=== PATIENT | male | born 1975 | race Caucasian/White ===

== ENCOUNTER 2018-02-06 08:02 | Day surgery (SDC) | payer OTHER ==
[~2018-02-06] VITALS: Ht 177.8 cm; Wt 69.6 kg
[~2018-02-06 08:02] MED LIST: ALBU8.5H8 PO; AMOX1TAB61 PO; FLUT1BLS INH; FLUT1DIS5 PO; FOLI1TAB47 PO; LISI-167 PO; LISI40TA PO; PARO10TA3 PO; PRED5TAB PO; TIOT4MIS5 INH; TURM500C4 PO
[2018-02-06 08:29] VITALS: BP 145/92
[2018-02-06] MEDS ORDERED: ALBUTEROL SULFATE 2.5 MG/3 ML ONE ×2 (08:58→13:49)
[2018-02-06] MEDS ORDERED: SODIUM CHLORIDE 0.9% 1,000 ML IV SCH (09:00)
[2018-02-06] MEDS ORDERED: FENTANYL PF 100 MCG/2ML ONE (09:10)
[2018-02-06] MEDS ORDERED: MIDAZOLAM 1 MG/ML, 5ML ONE (09:10)
[2018-02-06] MEDS ORDERED: GLYCOPYRROLATE 0.4 MG/2 ML, 2ML ONE (09:11)
[2018-02-06] MEDS ORDERED: DIPHENHYDRAMINE 50 MG/ML, 1ML ONE (09:11)
[2018-02-06] MEDS ORDERED: LIDOCAINE 4% TOPICAL SOLUTION 50 ML ONE (16:01)
[2018-02-06] MEDS ORDERED: LIDOCAINE GEL 2%, 5ML ONE (16:01)
== END 2018-02-06 14:40 | disposition home or self-care (01) ==
LOC: OUT 08:02 → EDSTATUS 10:00 → OUT 14:40
PROVIDERS: ATTEND Internal Medicine
DX: J45.50 Severe persistent asthma, uncomplicated (principal); G47.33 Obstructive sleep apnea (adult) (pediatric); I10 Essential (primary) hypertension; J44.9 Chronic obstructive pulmonary disease, unspecified
CPT/HCPCS: 31660; 94640; 99152; 99153; C1886; J1200; J2250; J3010

== ENCOUNTER 2018-03-06 07:56 | Day surgery (SDC) | payer OTHER ==
[~2018-03-06] VITALS: Ht 175.3 cm; Wt 70.4 kg
[~2018-03-06 07:56] MED LIST changes: +ALBUTEROL SULFATE 2.5 MG/3 ML ONE
[2018-03-06] MEDS ORDERED: LIDOCAINE 2%, 20ML ONE (08:00)
[2018-03-06] MEDS ORDERED: LIDOCAINE 4% TOPICAL SOLUTION 50 ML ONE (08:00)
[2018-03-06] MEDS ORDERED: LIDOCAINE GEL 2%, 5ML ONE (08:00)
[2018-03-06] MEDS ORDERED: LIDOCAINE 1%, 50ML ONE (08:00)
[2018-03-06] MEDS ORDERED: SODIUM CHLORIDE 0.9% 1,000 ML IV SCH (08:26)
[2018-03-06 08:45] VITALS: BP 124/90
[2018-03-06] MEDS ORDERED: FENTANYL PF 100 MCG/2ML ONE ×3 (08:49→11:07)
[2018-03-06] MEDS ORDERED: DIPHENHYDRAMINE 50 MG/ML, 1ML ONE (08:50)
[2018-03-06] MEDS ORDERED: GLYCOPYRROLATE 0.4 MG/2 ML, 2ML ONE (08:50)
[2018-03-06] MEDS ORDERED: MIDAZOLAM 1 MG/ML, 5ML ONE ×2 (08:50→11:07)
[2018-03-06] MEDS ORDERED: PLEASE ENTER HEIGHT AND WEIGHT MC SCH (09:00)
[2018-03-06] MEDS ORDERED: ALBUTEROL SULFATE 2.5 MG/3 ML ONE (14:06)
== END 2018-03-06 14:50 | disposition home or self-care (01) ==
LOC: OUT 07:56
PROVIDERS: ATTEND Internal Medicine
DX: J45.50 Severe persistent asthma, uncomplicated (principal); F32.9 Major depressive disorder, single episode, unspecified; I10 Essential (primary) hypertension
CPT/HCPCS: 31660; 94640; 99152; 99153; C1886; J1200; J2250; J3010; J3490

== ENCOUNTER 2018-03-27 09:03 | Day surgery (SDC) | payer OTHER ==
[~2018-03-27] VITALS: Ht 175.3 cm; Wt 70.2 kg
[~2018-03-27 09:03] MED LIST changes: -ALBUTEROL SULFATE 2.5 MG/3 ML ONE
[2018-03-27] MEDS ORDERED: SODIUM CHLORIDE 0.9% 1,000 ML IV SCH (09:33)
[2018-03-27 10:07] VITALS: BP 117/83
[2018-03-27] MEDS ORDERED: DIPHENHYDRAMINE 50 MG/ML, 1ML ONE (11:02)
[2018-03-27] MEDS ORDERED: GLYCOPYRROLATE 0.4 MG/2 ML, 2ML ONE (11:03)
[2018-03-27] MEDS ORDERED: FENTANYL PF 100 MCG/2ML ONE (11:10)
[2018-03-27] MEDS ORDERED: MIDAZOLAM 1 MG/ML, 5ML ONE (11:10)
[2018-03-27] MEDS ORDERED: ALBUTEROL SULFATE 2.5 MG/3 ML ONE (13:51)
[2018-03-27] MEDS ORDERED: LIDOCAINE 4% TOPICAL SOLUTION 50 ML ONE (16:03)
[2018-03-27] MEDS ORDERED: LIDOCAINE 2%, 20ML ONE (16:03)
== END 2018-03-27 16:40 | disposition home or self-care (01) ==
LOC: OUT 09:03
PROVIDERS: ATTEND Internal Medicine
DX: J45.50 Severe persistent asthma, uncomplicated (principal); F32.9 Major depressive disorder, single episode, unspecified; I10 Essential (primary) hypertension
CPT/HCPCS: 31661; 94640; 99152; 99153; C1886; J1200; J2250; J3010; J3490; J7030

== ENCOUNTER 2018-04-18 20:13 | Inpatient (IN) | payer OTHER ==
[~2018-04-18] VITALS: Ht 175.3 cm; Wt 73.6 kg
[2018-04-18] MEDS ORDERED: ALBUTEROL/IPRATROPIUM 2.5MG/0.5MG, 3 ML ONE (20:33)
[2018-04-18] MEDS ORDERED: ALBUTEROL SULFATE 2.5MG/0.5ML ONE (20:40)
--- NOTE | 2018-04-18 20:44 | NUR ---
PT WITH RESP DISTRESS, ABLE TO SPEAK SHORT SENTANCES, NOTES HX ASTHMA, HAD FEVERS APPROX 1 WEEK AGO, NO ABX OR STEROIDS HAD JUST BEEN ON 3 WEEKS PRIOR. USED NEB JUST PRIOR TO COMING WITHOU RELIEF.
[2018-04-18] MEDS ORDERED: [UNRECOGNIZED DRUG - OTHER] (20:47)
[2018-04-18] MEDS ORDERED: methylPREDNISolone SOD SUCC 125 MG/2 ML ONE (20:48)
[2018-04-18] MEDS ORDERED: methylPREDNISolone SOD SUCC 125 MG/2 ML IVPush ONE (21:00)
[2018-04-18 21:05] LABS: MEAN CORPUSCULAR HEMOGLOBIN 30.3 pg (27.5-34.5); MEAN CORPUSCULAR HGB CONC 32.9 g/dL (33.2-36.2); MEAN CORPUSCULAR VOLUME 92.1 fL (81-97); MEAN PLATELET VOLUME 7.9 fL (7.4-10.4); PLATELET COUNT 422 x10^3/uL (130-400); RED BLOOD COUNT 4.02 x10^6/uL (4.38-5.82); RED CELL DISTRIBUTION WIDTH 13.3 % (9.4-14.8)
--- NOTE | 2018-04-18 21:12 | NUR ---
PT RESTING CALMLY ON GURNEY, DENIES PAIN, RT T/X IN PROCESS, IV SITE STARTED, MEDICATED PER JUN. SIDERAILS UP X2, CALL LIGHT WITHIN REACH.
[2018-04-18 21:16] LABS: INTERNATIONAL NORMALIZED RATIO 1.02 (0.93-1.1); PROTHROMBIN TIME 10.8 Seconds (9.6-11.5)
[2018-04-18 21:16] LABS: RAPID INFLUENZA A Negative (Negative); RAPID INFLUENZA B Negative (Negative)
[2018-04-18 21:18] LABS: ALANINE AMINOTRANSFERASE 29 U/L (12-78); ALBUMIN 3.1 g/dL (3.4-5.0); ANION GAP 3 mmol/L (5-15); CHLORIDE 101 mmol/L (98-107); CREATININE 0.54 mg/dL (0.7-1.3)
[2018-04-18 21:21] LABS: ALKALINE PHOSPHATASE 97 U/L (45-117); BILIRUBIN,TOTAL 0.3 mg/dL (0.2-1.0); TOTAL PROTEIN 7.8 g/dL (6.4-8.2)
[2018-04-18] MEDS ORDERED: CEFTRIAXONE PMX 1GM/50ML 50 ML ONE (21:21)
--- NOTE | 2018-04-18 21:27 | NUR ---
PT WORK OF BREATHING MUCH IMPROVED AT THIS TIME, ABLE TO RELAX AND SPEAKING FULL SENTANCES. FLUIDS INFUSING AND ABX HUNG, BLOOD CULTURES HAVE BEEN DRAWN TIMES TIME PRIOR TO ADMINISTRATION
[2018-04-18 21:30] LABS: BASOPHILS # (AUTO) 0.01 x10^3/uL (0-0.1); BASOPHILS % (AUTO) 0 % (0-1); EOSINOPHILS # (AUTO) 0.21 x10^3/uL (0-0.4); EOSINOPHILS % (AUTO) 1 % (1-7); LYMPHOCYTES % (AUTO) 12 % (22-44); MD SCAN; MONOCYTES # (AUTO) 1.83 x10^3/uL (0.2-0.8); MONOCYTES % (AUTO) 12 % (2-9); NEUTROPHILS # (AUTO) 11.75 x10^3/uL (1.8-6.8); NEUTROPHILS % (AUTO) 75 % (42-75)
[2018-04-18] MEDS ORDERED: CEFTRIAXONE PMX 1GM/50ML 50 ML IV ONE (21:30)
[2018-04-18] MEDS ORDERED: SODIUM CHLORIDE 0.9% 1,000ML IVBOLUS ONE (21:30)
[2018-04-18] MEDS ORDERED: AZITHROMYCIN 500 MG in SODIUM CHLORIDE 0.9% 250 ML IV ONE (21:30)
--- NOTE | 2018-04-18 21:44 | NUR ---
RT PLACING ON OPTIFLOW AT THIS TIME AND ABG'S DRAWN. PT REQUESTING SOMETHING TO HELP HIM RELAX.
[2018-04-18] MEDS ORDERED: LORazepam 2 MG/ML, 1ML ONE (21:53)
[2018-04-18] MEDS ORDERED: LORazepam 2 MG/ML, 1ML IVPush ONE (22:00)
--- NOTE | 2018-04-18 22:52 | NUR ---
PT RESTING ON GURNEY,OPTIFLOW IN USE, [id number]%, MONITORS IN PLACE, CALL LIGHT WITHIN REACH. AWAITING ROOM FOR TRANSFER.
[2018-04-18] MEDS: methylPREDNISolone SOD SUCC 125 MG/2 ML IVPush SCH (22:54)
--- NOTE | 2018-04-18 22:56 | NUR ---
REPORT TO KATHERINE ROMO [facility].
[2018-04-18] MEDS ORDERED: ACETAMINOPHEN 500 MG TABLET PO PRN (23:00)
[2018-04-18] MEDS ORDERED: ACETAMINOPHEN 650 MG SUPP PR PRN (23:00)
[2018-04-18] MEDS ORDERED: CEFTRIAXONE 2 GM in SODIUM CHLORIDE 0.9% 50 ML IVPB SCH (23:00)
[2018-04-18] MEDS ORDERED: AZITHROMYCIN 500 MG in SODIUM CHLORIDE 0.9% 250 ML IVPB SCH (23:00)
[2018-04-18] MEDS ORDERED: ONDANSETRON 2MG/ML, 2ML IVPB PRN (23:00)
[2018-04-18] MEDS ORDERED: PHARMACY MAY ADJ FOR RENAL FX MC PRN (23:00)
[2018-04-18] MEDS ORDERED: ALBUTEROL SULFATE 2.5 MG/3 ML NPPB PRN (23:30)
[2018-04-18] MEDS: BUDESONIDE 0.5 MG/2 ML INHA NPPB SCH (23:30)
[2018-04-18 23:44] VITALS: BP 147/84
[2018-04-19] MEDS ORDERED: ALBUTEROL/IPRATROPIUM 2.5MG/0.5MG, 3 ML NPPB PRN
[2018-04-19] MEDS: ENOXAPARIN 40 MG/0.4 ML SQ SCH ×2 (00:22→23:17)
[2018-04-19] MEDS ORDERED: PHARMACOKINETIC MONITORING MC PRN (01:30)
[2018-04-19] MEDS ORDERED: VANCOMYCIN PER PHARMACY MC PRN (01:30)
[2018-04-19] MEDS ORDERED: PHARMACOKINETIC CONSULTATION MC ONE (01:30)
[2018-04-19] MEDS ORDERED: LACTATED RINGERS 1,000 ML IV SCH (01:30)
[2018-04-19] MEDS: PIPERACILLIN/TAZO/PMX 3.375GM 50 ML IV SCH ×4 (01:51→19:47)
[2018-04-19] MEDS: VANCOMYCIN 1,300 MG in SODIUM CHLORIDE 0.9% 250 ML IV SCH ×2 (02:22→14:28)
[2018-04-19] MEDS: ALBUTEROL/IPRATROPIUM 2.5MG/0.5MG, 3 ML NPPB SCH ×7 (02:40→23:20)
[2018-04-19 04:00] VITALS: BP 120/73
[2018-04-19 04:36] LABS: BASOPHILS % (AUTO) 0 % (0-1); EOSINOPHILS # (AUTO) 0.01 x10^3/uL (0-0.4); EOSINOPHILS % (AUTO) 0 % (1-7); LYMPHOCYTES # (AUTO) 0.57 x10^3/uL (1-3.4); LYMPHOCYTES % (AUTO) 5 % (22-44); MD NO; MEAN CORPUSCULAR HEMOGLOBIN 30.7 pg (27.5-34.5); MEAN CORPUSCULAR HGB CONC 33.5 g/dL (33.2-36.2); MEAN CORPUSCULAR VOLUME 91.7 fL (81-97); MEAN PLATELET VOLUME 7.8 fL (7.4-10.4); MONOCYTES # (AUTO) 0.11 x10^3/uL (0.2-0.8); MONOCYTES % (AUTO) 1 % (2-9); NEUTROPHILS # (AUTO) 10.37 x10^3/uL (1.8-6.8); NEUTROPHILS % (AUTO) 94 % (42-75); PLATELET COUNT 312 x10^3/uL (130-400); RED BLOOD COUNT 3.56 x10^6/uL (4.38-5.82); RED CELL DISTRIBUTION WIDTH 12.9 % (9.4-14.8)
[2018-04-19 04:46] LABS: ALBUMIN 2.6 g/dL (3.4-5.0); ANION GAP 2 mmol/L (5-15); CALCIUM 8.3 mg/dL (8.5-10.1); CHLORIDE 104 mmol/L (98-107); CREATININE 0.52 mg/dL (0.7-1.3)
[2018-04-19] MEDS: methylPREDNISolone SOD SUCC 125 MG/2 ML IVPush SCH ×4 (04:46→23:17)
[2018-04-19] MEDS ORDERED: IPRATROPIUM 0.5 MG/2.5 ML INHA NPPB SCH (07:00)
[2018-04-19] MEDS: LISINOPRIL 10 MG TABLET PO SCH (08:25)
[2018-04-19] MEDS: PAROXETINE 10 MG TABLET PO SCH (08:25)
[2018-04-19] MEDS: MULTIVIT.W/IRON, MINERALS ORAL SOL PO SCH (08:26)
[2018-04-19] MEDS: DOXYCYCLINE 100 MG in DEXTROSE 5% 250 ML IV SCH ×2 (09:55→21:34)
[2018-04-19] MEDS: BUDESONIDE 0.5 MG/2 ML INHA NPPB SCH ×2 (10:50→18:50)
[2018-04-19] MEDS ORDERED: IPRATROPIUM 0.5 MG/2.5 ML INHA ONE (12:52)
[2018-04-20] MEDS: PIPERACILLIN/TAZO/PMX 3.375GM 50 ML IV SCH (01:44)
[2018-04-20] MEDS: ALBUTEROL/IPRATROPIUM 2.5MG/0.5MG, 3 ML NPPB SCH ×8 (02:07→23:00)
[2018-04-20] MEDS: VANCOMYCIN 1,300 MG in SODIUM CHLORIDE 0.9% 250 ML IV SCH (02:19)
[2018-04-20] MEDS: methylPREDNISolone SOD SUCC 125 MG/2 ML IVPush SCH (05:19)
[2018-04-20] MEDS: BUDESONIDE 0.5 MG/2 ML INHA NPPB SCH ×2 (07:15→19:20)
[2018-04-20] MEDS: CEFTRIAXONE PMX 1GM/50ML 50 ML IV SCH (07:57)
[2018-04-20] MEDS: MULTIVIT.W/IRON, MINERALS ORAL SOL PO SCH (08:35)
[2018-04-20] MEDS: PAROXETINE 10 MG TABLET PO SCH (08:52)
[2018-04-20] MEDS: LISINOPRIL 10 MG TABLET PO SCH (08:52)
[2018-04-20] MEDS: DOXYCYCLINE 100 MG in DEXTROSE 5% 250 ML IV SCH ×2 (09:16→20:47)
[2018-04-20] MEDS ORDERED: methylPREDNISolone SOD SUCC 40 MG/ML IVPush SCH (13:00)
[2018-04-20 14:23] VITALS: BP 155/89
[2018-04-20 20:00] VITALS: BP 142/93
[2018-04-20] MEDS: ENOXAPARIN 40 MG/0.4 ML SQ SCH (20:47)
[2018-04-21 02:00] VITALS: BP 131/91
[2018-04-21] MEDS: ALBUTEROL/IPRATROPIUM 2.5MG/0.5MG, 3 ML NPPB SCH ×6 (03:00→23:20)
[2018-04-21 07:39] VITALS: BP 153/107
[2018-04-21] MEDS: MULTIVIT.W/IRON, MINERALS ORAL SOL PO SCH (08:41)
[2018-04-21] MEDS: PAROXETINE 10 MG TABLET PO SCH (08:50)
[2018-04-21] MEDS: CEFTRIAXONE PMX 1GM/50ML 50 ML IV SCH (08:50)
[2018-04-21] MEDS: LISINOPRIL 10 MG TABLET PO SCH (08:51)
[2018-04-21] MEDS: BUDESONIDE 0.5 MG/2 ML INHA NPPB SCH ×2 (09:00→19:00)
[2018-04-21] MEDS: DOXYCYCLINE 100 MG in DEXTROSE 5% 250 ML IV SCH ×2 (09:48→20:28)
[2018-04-21 13:15] VITALS: BP 146/91
[2018-04-21] MEDS ORDERED: FUROSEMIDE 20 MG/2 ML IV ONE (14:00)
[2018-04-21 16:14] LABS: ALBUMIN 3.3 g/dL (3.4-5.0); ANION GAP 4 mmol/L (5-15); CALCIUM 9.5 mg/dL (8.5-10.1); CHLORIDE 95 mmol/L (98-107)
[2018-04-21 16:18] LABS: ALANINE AMINOTRANSFERASE 65 U/L (12-78); ALKALINE PHOSPHATASE 83 U/L (45-117); BILIRUBIN,TOTAL 0.5 mg/dL (0.2-1.0); CREATININE 0.82 mg/dL (0.7-1.3); TOTAL PROTEIN 8.2 g/dL (6.4-8.2)
[2018-04-21 16:21] LABS: MEAN CORPUSCULAR HEMOGLOBIN 30.4 pg (27.5-34.5); MEAN CORPUSCULAR VOLUME 92.1 fL (81-97); MEAN PLATELET VOLUME 7.5 fL (7.4-10.4); PLATELET COUNT 550 x10^3/uL (130-400); RED BLOOD COUNT 4.26 x10^6/uL (4.38-5.82); RED CELL DISTRIBUTION WIDTH 13.2 % (9.4-14.8)
[2018-04-21 16:22] LABS: MD YES
[2018-04-21 16:24] LABS: HYPOCHROMIA 1+; LYMPH#(MANUAL) 1.26 x10^3/uL (1-3.4); LYMPHS% (MANUAL) 8 % (22-44); MONOS#(MANUAL) 1.26 x10^3/uL (0.3-2.7); MONOS% (MANUAL) 8 % (2-9); SEG#(MANUAL) 13.19 x10^3/uL (1.8-6.8); SEGS% (MANUAL) 84 % (42-75); TOXIC GRAN 1+
[2018-04-21 16:25] LABS: <PLATELET ESTIMATE> INCREASED; <PLT MORPHOLOGY> NORMAL PLT MORPH
[2018-04-21] MEDS: AMPICILLIN/SULBACTAM 3 GM in SODIUM CHLORIDE 0.9% 100 ML IV SCH ×2 (17:11→21:49)
[2018-04-21 20:00] VITALS: BP 134/91
[2018-04-21] MEDS: ENOXAPARIN 40 MG/0.4 ML SQ SCH (21:54)
[2018-04-22 02:30] VITALS: BP 139/90
[2018-04-22] MEDS: AMPICILLIN/SULBACTAM 3 GM in SODIUM CHLORIDE 0.9% 100 ML IV SCH ×2 (03:07→10:24)
[2018-04-22] MEDS: ALBUTEROL/IPRATROPIUM 2.5MG/0.5MG, 3 ML NPPB SCH ×3 (03:30→10:11)
[2018-04-22 05:25] VITALS: BP 140/95
[2018-04-22 05:28] LABS: BASOPHILS # (AUTO) 0.04 x10^3/uL (0-0.1); BASOPHILS % (AUTO) 0 % (0-1); EOSINOPHILS # (AUTO) 0.09 x10^3/uL (0-0.4); EOSINOPHILS % (AUTO) 1 % (1-7); LYMPHOCYTES # (AUTO) 2.73 x10^3/uL (1-3.4); LYMPHOCYTES % (AUTO) 23 % (22-44); MD NO; MEAN CORPUSCULAR HEMOGLOBIN 30.8 pg (27.5-34.5); MEAN CORPUSCULAR HGB CONC 33.7 g/dL (33.2-36.2); MEAN CORPUSCULAR VOLUME 91.4 fL (81-97); MEAN PLATELET VOLUME 7.4 fL (7.4-10.4); MONOCYTES # (AUTO) 1.34 x10^3/uL (0.2-0.8); MONOCYTES % (AUTO) 11 % (2-9); NEUTROPHILS # (AUTO) 7.85 x10^3/uL (1.8-6.8); NEUTROPHILS % (AUTO) 65 % (42-75); PLATELET COUNT 464 x10^3/uL (130-400); RED BLOOD COUNT 3.82 x10^6/uL (4.38-5.82); RED CELL DISTRIBUTION WIDTH 13.2 % (9.4-14.8)
[2018-04-22 05:34] LABS: CHLORIDE 99 mmol/L (98-107)
[2018-04-22 05:42] LABS: ALANINE AMINOTRANSFERASE 61 U/L (12-78); ALBUMIN 2.7 g/dL (3.4-5.0); ALKALINE PHOSPHATASE 70 U/L (45-117); ANION GAP 4 mmol/L (5-15); BILIRUBIN,TOTAL 0.2 mg/dL (0.2-1.0); CALCIUM 9.2 mg/dL (8.5-10.1); CREATININE 0.65 mg/dL (0.7-1.3); TOTAL PROTEIN 6.6 g/dL (6.4-8.2)
[2018-04-22] MEDS: BUDESONIDE 0.5 MG/2 ML INHA NPPB SCH (06:48)
[2018-04-22 08:15] VITALS: BP 147/95
[2018-04-22] MEDS: PAROXETINE 10 MG TABLET PO SCH (08:54)
[2018-04-22] MEDS: LISINOPRIL 10 MG TABLET PO SCH (08:54)
[2018-04-22] MEDS: DOXYCYCLINE 100 MG in DEXTROSE 5% 250 ML IV SCH (08:54)
[2018-04-22] MEDS: MULTIVIT.W/IRON, MINERALS ORAL SOL PO SCH (08:56)
[2018-04-22 13:10] VITALS: BP 151/90
[2018-04-22] MEDS ORDERED: DOXY100T10 PO (15:10)
[2018-04-22] MEDS ORDERED: AMOX1TAB64 PO (15:10)
[2018-04-22] MEDS ORDERED: PRED10TA PO (15:11)
== END 2018-04-22 16:25 | disposition home or self-care (01) | DRG 871 ==
LOC: ED 21:27 → EDIP 22:12 → SUATTDRO 22:40 → CCU 23:20 → 3NE 04-20 13:45 → DCLOUNGE 04-22 15:53
PROVIDERS: ADMIT Hospitalist; ATTEND Hospitalist
PROC: 5A09357 Assistance with Respiratory Ventilation, Less than 24 Consecutive Hours, Continuous Positive Airway Pressure (ICD-10-PCS; principal; 2018-04-18)
PROC: 5A09357 Assistance with Respiratory Ventilation, Less than 24 Consecutive Hours, Continuous Positive Airway Pressure (ICD-10-PCS; 2018-04-21)
PROC: 5A09357 Assistance with Respiratory Ventilation, Less than 24 Consecutive Hours, Continuous Positive Airway Pressure (ICD-10-PCS; 2018-04-22)
DX: A41.9 Sepsis, unspecified organism (principal); J96.21 Acute and chronic respiratory failure with hypoxia; J18.1 Lobar pneumonia, unspecified organism; J96.22 Acute and chronic respiratory failure with hypercapnia; J44.0 Chronic obstructive pulmonary disease with (acute) lower respiratory infection; J98.11 Atelectasis; F32.9 Major depressive disorder, single episode, unspecified; I10 Essential (primary) hypertension
CPT/HCPCS: 36415; 36600; 84145; 87400; 99291; J7620; J7626; 71045; 80048; 80053; 82040; 82803; 83605; 83735; 84100; 85025; 85610; 85730; 87040; 87081; 93005; 94640; 94644; 94660; 96365; 96375; G0378; J0295; J0456; J0696; J1650; J2543; J3370; J7060; J1940; J2060; J2930; J7030; J7050; J7120; J7512

== ENCOUNTER → 2018-06-18 | Outpatient (CLI) | payer OTHER ==
[~2018-06-18] MED LIST changes: +AMOX1TAB64 PO; +DOXY100T10 PO; +PRED10TA PO; +[UNRECOGNIZED DRUG - OTHER]
== END | disposition home or self-care (01) ==
LOC: CFH 13:54
PROVIDERS: ATTEND Internal Medicine Critical Care Medicine
DX: J18.9 Pneumonia, unspecified organism (principal)
CPT/HCPCS: 71046

== ENCOUNTER → 2018-07-14 | Outpatient (CLI) | payer OTHER | END | disposition home or self-care (01) | LOC: CFH 10:21 | PROVIDERS: ATTEND Registered Nurse | DX: J06.9 Acute upper respiratory infection, unspecified (principal); J45.50 Severe persistent asthma, uncomplicated | CPT/HCPCS: 71046 ==

== ENCOUNTER 2020-01-30 06:29 | Emergency (ER) | payer OTHER ==
[~2020-01-30] VITALS: Ht 175.3 cm; Wt 69.1 kg
[~2020-01-30 06:29] MED LIST changes: -DOXY100T10 PO; +DOXY100T23 PO
[2020-01-30 06:34] VITALS: BP 148/92
--- NOTE | 2020-01-30 06:43 | NUR ---
PT AMB TO ROOM STEADY GAIT WITH HOME O2 IN PLACE. PT BASELINE 4LNC
--- NOTE | 2020-01-30 07:45 | NUR ---
PT C/O SOB THAT OCCURS IN THE AFTERNOONS. PT WAS RECENTLY PRESCRIBED PREDNISONE ZITHROMAX. PT STATES HE FEELS FINE IN THE MORNINGS BUT IN THE AFTERNOONS HE STARTS TO FEEL SOB. HE WAS CONCERNED HE MAY HAVE PNEUMONIA AND WANTED TO GET CHECKED OUT.
--- NOTE | 2020-01-30 07:54 | NUR ---
PT RECEIVED DISCHARGE INSTRUCTIONS AND EDUCATION. PT HAD NO FURTHER QUESTIONS. PT AMBULATED TO DISCHARGE DOOR, STEADY GAIT.
== END 2020-01-30 07:57 | disposition home or self-care (01) ==
LOC: ED 07:20
DX: J44.1 Chronic obstructive pulmonary disease with (acute) exacerbation (principal); Z87.891 Personal history of nicotine dependence
CPT/HCPCS: 71045; 99283

== ENCOUNTER 2020-06-03 15:20 | Observation (INO) | payer OTHER ==
[~2020-06-03] VITALS: Ht 175.3 cm; Wt 68.6 kg
[~2020-06-03 15:20] MED LIST changes: -LISI40TA PO; +LISI40TA9 PO
--- NOTE | 2020-06-03 15:28 | NUR ---
EKG IN TRIAGE
[2020-06-03] MEDS ORDERED: ASPIRIN 325 MG TABLET PO ONE (15:43)
[2020-06-03 15:57] LABS: BASOPHILS % (AUTO) 0 % (0-1); EOSINOPHILS % (AUTO) 0 % (1-7); LYMPHOCYTES % (AUTO) 15 % (22-44); MEAN CORPUSCULAR HEMOGLOBIN 30.6 pg (27.5-34.5); MEAN CORPUSCULAR HGB CONC 33.6 g/dL (33.2-36.2); MEAN PLATELET VOLUME 7.7 fL (7.4-10.4); MONOCYTES % (AUTO) 10 % (2-9); NEUTROPHILS % (AUTO) 74 % (42-75); PLATELET COUNT 337 x10^3/uL (130-400); RED BLOOD COUNT 4.89 x10^6/uL (4.38-5.82); RED CELL DISTRIBUTION WIDTH 12.9 % (9.4-14.8)
[2020-06-03] MEDS ORDERED: TICAGRELOR 90 MG TABLET ONE (15:57)
[2020-06-03] MEDS ORDERED: NITROGLYCERIN 5 MG/ML, 10ML ONE (15:57)
[2020-06-03] MEDS ORDERED: BIVALIRUDIN 250 MG ONE (15:57)
[2020-06-03] MEDS ORDERED: MIDAZOLAM 1 MG/ML, 5ML ONE (15:57)
[2020-06-03] MEDS ORDERED: HEPARIN 1,000 UNITS/ML, 10ML ONE (15:57)
[2020-06-03] MEDS ORDERED: VERAPAMIL 2.5 MG/ML, 2ML ONE (15:57)
[2020-06-03] MEDS ORDERED: FENTANYL PF 100 MCG/2ML ONE (15:57)
[2020-06-03] MEDS ORDERED: LIDOCAINE 2%, 20ML ONE (15:57)
[2020-06-03 15:58] LABS: MD NO
[2020-06-03] MEDS ORDERED: MORPHINE SULFATE 4 MG/ML, 1ML IVPush PRN (16:00)
[2020-06-03] MEDS ORDERED: MORPHINE SULFATE 4 MG/ML, 1ML ONE ×2 (16:05→16:21)
[2020-06-03] MEDS ORDERED: ASPIRIN 81 MG TABLET CHEW ONE ×2 (16:05→16:41)
[2020-06-03 16:07] LABS: TROPONIN I 0.033 ng/mL (0.000-0.045)
[2020-06-03] MEDS: LORazepam 1MG TABLET PO ONE ×2 (16:13→16:17)
[2020-06-03] MEDS ORDERED: LORazepam 1MG TABLET ONE (16:16)
[2020-06-03 16:29] LABS: INTERNATIONAL NORMALIZED RATIO 0.99 (0.93-1.1); PROTHROMBIN TIME 10.6 Seconds (9.6-11.5)
[2020-06-03] MEDS ORDERED: MORPHINE SULFATE 4 MG/ML, 1ML IVPush ONE (16:30)
[2020-06-03] MEDS ORDERED: LISI40TA9 PO (16:31)
[2020-06-03] MEDS ORDERED: SERT50TA28 PO (16:32)
--- NOTE | 2020-06-03 16:32 | NUR ---
CODE CARDIAC WAS CALLED, HOWEVER, AFTER COMPARING CURRENT EKG TO PRIOR EKG, PT IS NOT TO GO TO [facility]OST [facility] FOUND CLERK AT THIS TIME, PER DR. JUNG AND DR. BOLES, BUT WILL BE ADMITTED FOR FURTHER WORK-UP. PT RESTING WITH NOT COMPLAINTS. PT GIVEN MORPHINE FOR CHEST DISCOMFORT, ATIVAN 1MG PO AND ASPIRIN. MOTHER AT BEDSIDE. CALL BUTTON WITHIN REACH. PT IS NORMAL SINUS RHYTHM ON MONITOR.
--- NOTE | 2020-06-03 16:49 | NUR ---
PT MOVED TO ROOM 16. PT ON CONTINUOUS CARDIAC AND SPO2 MONITORS. SBAR HAND-OFF REPORT GIVEN TO DEMETRIUS DEE. CALL LIGHT IN LAP. VS UPDATED AND STABLE.
--- NOTE | 2020-06-03 16:51 | NUR ---
REPORT FROM JOSUE ROMO. ASSUMED CARE OF PT. CARDIAC, BP, AND SP02 MONITORS IN PLACE. MOTHER AT BEDSIDE AND CALL LIGHT WITHIN REACH. NO FURTHER NEEDS AT THIS TIME.
--- NOTE | 2020-06-03 16:55 | NUR ---
ORIENTATION RN: PT STATES PAIN IS BETTER.
--- NOTE | 2020-06-03 16:59 | NUR ---
PER ZACHARY, WE DON'T NEED RAPID COVID TEST NOW.
[2020-06-03] MEDS ORDERED: ATORVASTATIN 80 MG TABLET PO ONE (18:00)
--- NOTE | 2020-06-03 18:08 | NUR ---
REPORT TO LINETTE ROMO.
[2020-06-03 18:42] VITALS: BP 135/77
[2020-06-03] MEDS ORDERED: LABETALOL 5MG/ML, 20ML IVPush PRN (19:30)
[2020-06-03] MEDS ORDERED: ACETAMINOPHEN 325 MG TABLET PO PRN (19:30)
[2020-06-03] MEDS ORDERED: DOCUSATE 100 MG CAPSULE PO PRN (19:30)
[2020-06-03] MEDS ORDERED: morphine SULFATE 10 MG/ML, 1ML IVPush PRN (19:30)
[2020-06-03] MEDS ORDERED: LIDODERM 5% PATCH TD PRN (19:30)
[2020-06-03] MEDS ORDERED: MELATONIN 5 MG TABLET PO PRN (19:30)
[2020-06-03] MEDS: INSULIN LISPRO 100 UNITS/ML, PEN SQ-INSULIN SCH (20:30)
[2020-06-03] MEDS: HEPARIN 5,000 UNITS/ML, 1ML SQ SCH (20:31)
[2020-06-03] MEDS ORDERED: ALBUTEROL HFA 90 MCG/SPRAY INH PRN (21:00)
[2020-06-03] MEDS ORDERED: LORazepam 1MG TABLET PO ONE (21:00)
[2020-06-03 22:09] LABS: TROPONIN I 0.035 ng/mL (0.000-0.045)
[2020-06-04 02:50] VITALS: BP 107/68
[2020-06-04] MEDS: HEPARIN 5,000 UNITS/ML, 1ML SQ SCH ×3 (03:36→11:48)
[2020-06-04 05:03] LABS: BASOPHILS % (AUTO) 1 % (0-1); EOSINOPHILS % (AUTO) 2 % (1-7); LYMPHOCYTES % (AUTO) 34 % (22-44); MEAN CORPUSCULAR HEMOGLOBIN 30.8 pg (27.5-34.5); MEAN CORPUSCULAR HGB CONC 33.1 g/dL (33.2-36.2); MEAN PLATELET VOLUME 8.2 fL (7.4-10.4); MONOCYTES % (AUTO) 14 % (2-9); NEUTROPHILS % (AUTO) 50 % (42-75); PLATELET COUNT 285 x10^3/uL (130-400); RED BLOOD COUNT 4.27 x10^6/uL (4.38-5.82)
[2020-06-04 05:04] LABS: MD NO
[2020-06-04 05:10] LABS: ANION GAP 5 mmol/L (5-15); CALCIUM 8.4 mg/dL (8.5-10.1); CHLORIDE 106 mmol/L (98-107)
[2020-06-04 05:21] VITALS: BP 120/75
[2020-06-04 05:25] LABS: CHOL/HDL RATIO 3.5; CHOLESTEROL, TOTAL 167 mg/dL (140-239); CREATININE 0.62 mg/dL (0.7-1.3); FREE T4 (FREE THYROXINE) 0.97 ng/dL (0.76-1.46); HDL CHOL % 29 % (26-37); HDL CHOLESTEROL (DIRECT) 48 mg/dL (40-60); LDL CHOLESTEROL,CALCULATED 100 mg/dL (54-169); LDL/HDL RATIO 2.1 (0.5-3.0); TRIGLYCERIDES 96 mg/dL (50-200); TROPONIN I 0.029 ng/mL (0.000-0.045); VLDL CHOLESTEROL 19 mg/dL (0-25)
[2020-06-04] MEDS ORDERED: NITROGLYCERIN 0.4 MG BOTTLE (25 TABS) SL PRN (05:30)
[2020-06-04] MEDS: INSULIN LISPRO 100 UNITS/ML, PEN SQ-INSULIN SCH ×2 (07:00→11:00)
[2020-06-04 07:22] VITALS: BP 112/75
[2020-06-04] MEDS ORDERED: ATOR40TA78 PO (07:54)
[2020-06-04] MEDS ORDERED: MULTIVITAMINS/MINERALS TABLET PO SCH (09:00)
[2020-06-04] MEDS ORDERED: LISINOPRIL 40 MG TABLET PO SCH (09:00)
[2020-06-04] MEDS ORDERED: FLUTICASONE/VILANTEROL 200-25MCG/INH INH SCH (09:00)
[2020-06-04] MEDS ORDERED: TIOTROPIUM BROMIDE 18 MCG/INH INH SCH (09:00)
[2020-06-04] MEDS ORDERED: REGADENOSON 0.4 MG/5 ML SYRINGE ONE (10:13)
[2020-06-04 11:44] VITALS: BP 121/79
== END 2020-06-04 14:31 | disposition home or self-care (01) ==
LOC: ED 16:24 → INTOOBSV 17:29 → EDIP 17:29 → 5SO 18:32 → UNDODISOB 06-04 14:15 → DCLOUNGE 06-04 14:17
PROVIDERS: ADMIT Internal Medicine; ATTEND Hospitalist
DX: R07.89 Other chest pain (principal); R73.9 Hyperglycemia, unspecified; J96.10 Chronic respiratory failure, unspecified whether with hypoxia or hypercapnia; R94.31 Abnormal electrocardiogram [ECG] [EKG]; J44.9 Chronic obstructive pulmonary disease, unspecified; I10 Essential (primary) hypertension; G47.33 Obstructive sleep apnea (adult) (pediatric); F41.8 Other specified anxiety disorders; T40.7X5A Adverse effect of cannabis (derivatives), initial encounter; Z79.899 Other long term (current) drug therapy
CPT/HCPCS: 36415; 71045; 78452; 80047; 80048; 80061; 82962; 83036; 83735; 84100; 84439; 84443; 84484; 85025; 85610; 85730; 93005; 93017; 93306; 94640; 94660; 96372; 96374; 99285; A9502; G0378; J1644; J2270; J2785; J3490; J0583; J2250; J3010

== ENCOUNTER 2020-06-22 13:35 | Emergency (ER) | payer OTHER ==
[~2020-06-22] VITALS: Ht 177.8 cm; Wt 70.5 kg
[~2020-06-22 13:35] MED LIST changes: +ATOR40TA78 PO; +SERT50TA28 PO
[2020-06-22 14:33] LABS: BASOPHILS % (AUTO) 0 % (0-1); EOSINOPHILS % (AUTO) 1 % (1-7); LYMPHOCYTES % (AUTO) 17 % (22-44); MEAN CORPUSCULAR HEMOGLOBIN 30.8 pg (27.5-34.5); MEAN CORPUSCULAR HGB CONC 33.2 g/dL (33.2-36.2); MEAN PLATELET VOLUME 8.1 fL (7.4-10.4); MONOCYTES % (AUTO) 12 % (2-9); NEUTROPHILS % (AUTO) 69 % (42-75); PLATELET COUNT 308 x10^3/uL (130-400); RED BLOOD COUNT 4.21 x10^6/uL (4.38-5.82); RED CELL DISTRIBUTION WIDTH 13.2 % (9.4-14.8)
[2020-06-22 14:34] LABS: MD NO
[2020-06-22 14:40] LABS: ALBUMIN 3.8 g/dL (3.4-5.0); ANION GAP 2 mmol/L (5-15); CALCIUM 9.2 mg/dL (8.5-10.1); CHLORIDE 104 mmol/L (98-107); CREATININE 0.89 mg/dL (0.7-1.3)
[2020-06-22 16:31] VITALS: BP 128/62
== END 2020-06-22 16:32 | disposition home or self-care (01) ==
LOC: ED 14:07
DX: J44.9 Chronic obstructive pulmonary disease, unspecified (principal); B34.9 Viral infection, unspecified; R04.0 Epistaxis; Z20.822 Contact with and (suspected) exposure to COVID-19; R94.31 Abnormal electrocardiogram [ECG] [EKG]
CPT/HCPCS: 36415; 71045; 80048; 82040; 85025; 93005; 99285; U0003

== ENCOUNTER 2020-12-03 14:12 | Emergency (ER) | payer OTHER ==
[~2020-12-03] VITALS: Ht 175.3 cm; Wt 71.4 kg
[2020-12-03 14:18] VITALS: BP 133/90
[2020-12-03] MEDS ORDERED: ASPIRIN 81 MG TABLET CHEW PO ONE (14:30)
[2020-12-03 15:11] LABS: BASOPHILS % (AUTO) 1 % (0-1); EOSINOPHILS % (AUTO) 1 % (1-7); LYMPHOCYTES % (AUTO) 22 % (22-44); MEAN CORPUSCULAR HEMOGLOBIN 30.4 pg (27.5-34.5); MEAN CORPUSCULAR HGB CONC 33.3 g/dL (33.2-36.2); MEAN PLATELET VOLUME 8.2 fL (7.4-10.4); MONOCYTES % (AUTO) 10 % (2-9); NEUTROPHILS % (AUTO) 67 % (42-75); PLATELET COUNT 321 x10^3/uL (130-400); RED BLOOD COUNT 4.68 x10^6/uL (4.38-5.82); RED CELL DISTRIBUTION WIDTH 13.2 % (9.4-14.8)
[2020-12-03 15:20] LABS: ALBUMIN 4.2 g/dL (3.4-5.0); ANION GAP 2 mmol/L (5-15); CALCIUM 9.4 mg/dL (8.5-10.1); CHLORIDE 100 mmol/L (98-107)
[2020-12-03 15:24] LABS: TROPONIN I < 0.015 ng/mL (0.000-0.045)
[2020-12-03] MEDS ORDERED: LORazepam 1MG TABLET PO ONE (15:30)
--- NOTE | 2020-12-03 15:30 | NUR ---
PT IN HOSPITAL GOWN. PT CALM AND COOPERATIVE. PT PROVIDED URINE SAMPLE THAT WAS WALKED TO LAB.
[2020-12-03 15:37] LABS: SALICYLATE LEVEL < 1.7 mg/dL (2.8-20.0)
[2020-12-03 16:23] LABS: AMPHETAMINE SCREEN, URINE Negative (Negative); BARBITURATE SCREEN, URINE Negative (Negative); BENZODIAZEPINE SCREEN, URINE Negative (Negative); CANNABINOID SCREEN, URINE Negative (Negative); COCAINE SCREEN, URINE Negative (Negative); METHADONE SCREEN, URINE Negative (Negative); OPIATE SCREEN, URINE Negative (Negative)
[2020-12-03] MEDS ORDERED: ASPIRIN 81 MG TABLET CHEW ONE (16:25)
[2020-12-03] MEDS ORDERED: LORazepam 1MG TABLET ONE (16:25)
--- NOTE | 2020-12-03 16:40 | NUR ---
PT MEDICATED PER EMAR. PT MOTHER IS AT BEDSIDE. PT RESTING IN BED CALMLY. PSYCH CLOCKMAKER AND MOVING WORKER HAVE BEEN IN TO SEE PT.
--- NOTE | 2020-12-03 17:12 | NUR ---
THROUGHPUT: PT ON LEGAL HOLD, PER U WILL TAKE PATIENT IF COVID IS NEGATIVE. ORDERED TEST.
--- NOTE | 2020-12-03 17:44 | NUR ---
COVID TEST DONE ON PT. PT TOLERATED WELL. PT MOTHER REMAINS AT BEDSIDE CURRENTLY. PT RESTING CALM IN BED. WILL CONTINUE TO MONITOR.
--- NOTE | 2020-12-03 18:09 | NUR ---
PT GIVEN MEAL TRAY.
--- NOTE | 2020-12-03 18:55 | NUR ---
FIRST ENCOUNTER WITH PATIENT. PATIENT LYING IN STRETCHER. MOM AT BEDSIDE. PATIENT ON 4LNC (BASELINE 02). PATIENT REQUESTING PILLOWS/ BLANKET. MOM/ PATIENT UPDATED ON POC. 1:[address] SI PRECAUTIONS IN PLACE. WILL CONTINUE TO MONITOR.
--- NOTE | 2020-12-03 19:15 | NUR ---
PATIENT PROVIDED WITH PILLOWS/ BLANKETS.
--- NOTE | 2020-12-03 19:18 | NUR ---
REPORT GIVEN TO DEMETRIUS CHRISTINE.
== END 2020-12-03 15:00 | disposition home or self-care (01) ==
LOC: ED 14:20
DX: F33.9 Major depressive disorder, recurrent, unspecified (principal); I10 Essential (primary) hypertension; Z20.822 Contact with and (suspected) exposure to COVID-19
CPT/HCPCS: 36415; 71045; 80048; 80299; 80307; 80320; 80329; 82040; 84484; 85025; 87635; 93005; 99285; G0480

== ENCOUNTER 2020-12-03 18:30 | Inpatient (IN) | payer OTHER ==
[~2020-12-03] VITALS: Ht 175.3 cm; Wt 71.4 kg
[2020-12-03] MEDS ORDERED: DOCUSATE 100 MG CAPSULE PO PRN (20:00)
[2020-12-03] MEDS ORDERED: ONDANSETRON ODT 4 MG PO PRN (20:00)
[2020-12-03] MEDS ORDERED: POLYETHYLENE GLYCOL 17 GM PACKET PO PRN (20:00)
[2020-12-03] MEDS ORDERED: BISACODYL 10 MG SUPP PR PRN (20:00)
[2020-12-03] MEDS ORDERED: ACETAMINOPHEN 325 MG TABLET PO PRN (20:00)
[2020-12-03] MEDS: QUETIAPINE 100MG TABLET PO SCH (21:49)
[2020-12-03] MEDS ORDERED: MIRTAZAPINE 15 MG TABLET PO SCH (22:00)
[2020-12-03] MEDS ORDERED: PLEASE ENTER HEIGHT AND WEIGHT MC SCH (22:00)
[2020-12-03] MEDS ORDERED: LORazepam 0.5MG TABLET PO SCH (22:00)
[2020-12-03] MEDS ORDERED: ALBUTEROL SULFATE 2.5 MG/3 ML NPPB PRN (22:00)
[2020-12-04 03:39] VITALS: BP 120/80
[2020-12-04 07:44] VITALS: BP 139/89
[2020-12-04 07:46] LABS: CHOL/HDL RATIO 3.3; FREE T4 (FREE THYROXINE) 0.94 ng/dL (0.76-1.46); LDL/HDL RATIO 1.9 (0.5-3.0)
[2020-12-04] MEDS: BUDESONIDE 0.5 MG/2 ML INHA INH SCH ×2 (08:09→20:52)
[2020-12-04] MEDS: IPRATROPIUM 0.5 MG/2.5 ML INHA HHN SCH ×4 (08:09→21:30)
[2020-12-04] MEDS: LISINOPRIL 20 MG TABLET PO SCH (08:56)
[2020-12-04] MEDS: QUETIAPINE 25MG TABLET PO SCH (08:57)
[2020-12-04] MEDS ORDERED: LORazepam 0.5MG TABLET PO SCH (09:00)
[2020-12-04 12:24] LABS: MICROSCOPIC NOT IND
[2020-12-04 19:46] VITALS: BP 116/73
[2020-12-04] MEDS: MIRTAZAPINE 15 MG TABLET PO SCH (20:42)
[2020-12-04] MEDS: QUETIAPINE 100MG TABLET PO SCH (20:43)
[2020-12-04] MEDS: ATORVASTATIN 40 MG TABLET PO SCH (20:43)
[2020-12-05 07:43] VITALS: BP 115/80
[2020-12-05] MEDS: QUETIAPINE 25MG TABLET PO SCH (08:43)
[2020-12-05] MEDS: LISINOPRIL 20 MG TABLET PO SCH (08:44)
[2020-12-05] MEDS: BUPROPION SR 150 MG TABLET PO SCH (08:45)
[2020-12-05] MEDS: FLUTICASONE/VILANTEROL 200-25MCG/INH INH SCH (08:49)
[2020-12-05] MEDS: TIOTROPIUM BROMIDE 18 MCG/INH INH SCH (08:49)
[2020-12-05 19:26] VITALS: BP 110/73
[2020-12-05] MEDS: ATORVASTATIN 40 MG TABLET PO SCH (20:46)
[2020-12-05] MEDS: QUETIAPINE 100MG TABLET PO SCH (20:46)
[2020-12-05] MEDS: MIRTAZAPINE 15 MG TABLET PO SCH (20:46)
[2020-12-06 08:10] VITALS: BP 117/79
[2020-12-06] MEDS: FLUTICASONE/VILANTEROL 200-25MCG/INH INH SCH (08:33)
[2020-12-06] MEDS: TIOTROPIUM BROMIDE 18 MCG/INH INH SCH (08:33)
[2020-12-06] MEDS: BUPROPION SR 150 MG TABLET PO SCH (08:40)
[2020-12-06] MEDS: QUETIAPINE 25MG TABLET PO SCH (08:42)
[2020-12-06] MEDS: LISINOPRIL 20 MG TABLET PO SCH (08:42)
[2020-12-06] MEDS ORDERED: BUPR150T73 PO (12:18)
[2020-12-06] MEDS ORDERED: MIRT-14 PO (12:18)
[2020-12-06] MEDS ORDERED: QUET25TA7 PO (12:18)
[2020-12-06] MEDS ORDERED: QUET100T2 PO (12:18)
[2020-12-06] MEDS ORDERED: TRINTELLIX PO (12:18)
== END 2020-12-06 15:54 | disposition home or self-care (01) | DRG 885 ==
LOC: 3E 20:21
PROVIDERS: ADMIT Psychiatry & Neurology Psychosomatic Medicine; ATTEND Psychiatry & Neurology Psychosomatic Medicine
DX: F33.2 Major depressive disorder, recurrent severe without psychotic features (principal); J96.10 Chronic respiratory failure, unspecified whether with hypoxia or hypercapnia; R45.851 Suicidal ideations; F41.1 Generalized anxiety disorder; J44.9 Chronic obstructive pulmonary disease, unspecified; G47.00 Insomnia, unspecified; E78.5 Hyperlipidemia, unspecified; F41.0 Panic disorder [episodic paroxysmal anxiety]; I10 Essential (primary) hypertension; Z79.899 Other long term (current) drug therapy; Z99.81 Dependence on supplemental oxygen; Z82.49 Family history of ischemic heart disease and other diseases of the circulatory system
CPT/HCPCS: 36415; 71045; 80061; 81003; 82607; 84439; 84443